=== PATIENT | male | born 1970 ===

== ENCOUNTER 2017-11-06 09:44 | Emergency (ER) | payer OTHER ==
[~2017-11-06] VITALS: Ht 180.3 cm; Wt 97.1 kg
[2017-11-06] MEDS ORDERED: ONDANSETRON PF 4 MG/2 ML VIAL. IV ONE (10:00)
--- NOTE | 2017-11-06 10:04 | PHYS DOC ---
Past History Past Medical History: CAD, COPD, Migraines Smoking: Quit Greater Than 1 Year Alcohol Use: None Drug Use: None Adult General Chief Complaint Chief Complaint: MECHANICAL FALL HPI HPI 47-year-old male patient resident of correction facility brought in by EMS because of head injury. Patient states he had an accidental fall from truck bus about 5 feet high and landed on back of his head on concrete area without loss of consciousness. Patient complaining of pain in back of his head and rated his pain 8/10 associated with nausea. Patient denies focal neurodeficit, fever and chills, chest pain, shortness of breath. Correction facility reported that patient was confused but patient was alert and oriented reported by EMS. Patient is not sure about his tetanus immunization. Review of Systems Review of Systems Constitutional: Denies fever or chills [] Eyes: Denies change in visual acuity, redness, or eye pain [] HENT: Denies nasal congestion or sore throat [] Respiratory: Denies cough or shortness of breath [] Cardiovascular: No additional information not addressed in HPI [] GI: Denies abdominal pain, vomiting, bloody stools or diarrhea , reports nausea[ ] : Denies dysuria or hematuria [] Musculoskeletal: Denies back pain or joint pain [] Integument: Denies rash or skin lesions [] Neurologic: Denies focal weakness or sensory changes, reports headache [] Endocrine: Denies polyuria or polydipsia [] All other systems were reviewed and found to be within normal limits, except as documented in this note. Allergies Allergies Allergies Coded Allergies Type Severity Reaction Last Updated Verified codeine Allergy Unknown 11/06/17 Yes sulfamethoxazole Allergy Unknown 11/06/17 Yes trimethoprim Allergy Unknown 11/06/17 Yes Physical Exam Physical Exam Constitutional: Well developed, well nourished, mild distress, non-toxic appearance. [] HENT: Normocephalic, bilateral external ears normal, oropharynx moist, no oral exudates, nose normal, 5 cm occipital contusion without open wound.[] Eyes: PERRLA, EOMI, conjunctiva normal, no discharge. [] Neck:immobilized by EMS Cardiovascular:Heart rate regular rhythm, no murmur [] Lungs & Thorax: Bilateral breath sounds clear to auscultation [] Abdomen: Bowel sounds normal, soft, no tenderness, no masses, no pulsatile masses. [] Skin: Warm, dry, no erythema, no rash. [] Back: No tenderness, no CVA tenderness. [] Extremities: No tenderness, no cyanosis, no clubbing, ROM intact, no edema. [] Neurologic: Alert and oriented X 3, normal motor function, normal sensory function, no focal deficits noted. [] Psychologic: Affect normal, judgement normal, mood normal. [] EKG EKG [] Radiology/Procedures Radiology/Procedures [] Course & Med Decision Making Course & Med Decision Making Pertinent Labs and Imaging studies reviewed. (See chart for details) [] Dragon Disclaimer Dragon Disclaimer This electronic medical record was generated, in whole or in part, using a voice recognition dictation system. Departure Departure: Impression: Primary Impression: Head injury Additional Impressions: Fall from height of greater than 3 feet Contusion of scalp Disposition: 01 HOME, SELF-CARE (To police custody) Condition: IMPROVED Referrals: DEEP ALBA APRN (PCP) Patient Instructions: Contusion, Head Injury, Adult Additional Instructions: Apply ice on the affected area Follow-up with your doctor as needed Scripts Naproxen (NAPROSYN) 500 Mg Tablet 500 MG PO BID, #14 Prov: SUMAYA DIETZ MD 11/06/17 Ondansetron (ZOFRAN ODT) 4 Mg Tab.rapdis 4 MG PO TID PRN Y for NAUSEA, #12 Prov: SUMAYA DIETZ MD 11/06/17 Problem Qualifiers SUMAYA DIETZ MD Nov 06, 2017 10:04
--- NOTE | 2017-11-06 10:28 | RAD ---
CT scan of the head without contrast 11/06/2017 Clinical history: Fall with head injury. Technique: Unenhanced, contiguous, 5 mm axial sections were obtained through the head. One or more of the following individualized dose reduction techniques were utilized for this study: 1. Automated exposure control. 2. Adjustment of the mA and/or kV according to patient size. 3. Use of iterative reconstruction technique. Findings: The ventricles and sulci are within normal limits in size and configuration. No area of abnormal attenuation is involving the brain parenchyma. No extra-axial fluid collection is seen. No skull fracture is noted. Impression: Negative study. CT scan of the cervical spine without contrast 11/06/2017 Clinical history: Neck pain post fall. Technique: Unenhanced, contiguous, 0.625 mm axial sections were obtained through the cervical spine. 3 mm reconstructed sagittal, axial, and and coronal images were obtained. One or more of the following individualized dose reduction techniques were utilized for this study: 1. Automated exposure control. 2. Adjustment of the mA and/or kV according to patient size. 3. Use of iterative reconstruction technique. Findings: Sagittal and coronal reconstructed images demonstrate mild straightening of the normal cervical lordosis. No fracture or subluxation of the cervical vertebrae is seen. Degenerative changes are seen involving the uncovertebral and facet joints throughout the mid and lower cervical disc spaces. Impression: No fracture or subluxation of the cervical vertebra is seen.
[2017-11-06] MEDS ORDERED: KETOROLAC 30 MG/ML VIAL. IV ONE (11:15)
[2017-11-06] MEDS ORDERED: ONDA4TAB10 PO (11:32)
[2017-11-06] MEDS ORDERED: NAPR-683 PO (11:32)
[2017-11-06 11:45] VITALS: BP 113/75
== END 2017-11-06 11:50 | disposition home or self-care (01) ==
LOC: EEVIPCON 09:44 → ER 09:44
DX: S00.03XA Contusion of scalp, initial encounter (principal); I25.10 Atherosclerotic heart disease of native coronary artery without angina pectoris; J44.9 Chronic obstructive pulmonary disease, unspecified; G43.909 Migraine, unspecified, not intractable, without status migrainosus; Z87.891 Personal history of nicotine dependence; Z88.5 Allergy status to narcotic agent; Z88.1 Allergy status to other antibiotic agents; W17.89XA Other fall from one level to another, initial encounter; Y93.89 Activity, other specified; Y99.8 Other external cause status; Y92.89 Other specified places as the place of occurrence of the external cause
CPT/HCPCS: 70450; 72125; 96374; 96375; 99284; J1885; J2405